=== PATIENT | male | born 1965 | race Two or more races ===

== ENCOUNTER 2025-05-09 14:46 | Emergency (ER) | payer MEDICAID, SELFPAY ==
[2025-05-09 15:09] VITALS: BP 131/83; PULSE 98; RESP 20; TEMP 36.7; O2SAT 95
--- NOTE | 2025-05-09 15:22 | PD.EDRME ---
Rapid Medical Screening Exam RME Arrival date/time: 05/09/25 14:46 This is a case of 60-year-old male who came into the emergency room due to excessive thirst and increased frequency in urine patient checked blood sugar at home it was 520 no other symptoms noted Chief Complaint: General Adult/Misc Complain Time Seen by Provider: 05/09/25 15:20 Vital signs: Vital Signs Temperature 98.0 F 05/09/25 15:09 Pulse Rate 98 05/09/25 15:09 Respiratory Rate 20 05/09/25 15:09 Blood Pressure 131/83 H 05/09/25 15:09 Pulse Oximetry (%) 95 05/09/25 15:09 Oxygen Delivery Method Room Air 05/09/25 15:09
--- NOTE | 2025-05-09 15:40 | PC.NURSE ---
PT TO THE TRIAGE WINDOW TO NOTIFIED THIS NURSE THAT HE IS GOING TO GET HES CELL PHONE FROM HIS CAR
[2025-05-09 15:44] LABS: Collection Type, Urine Voided
[2025-05-09 15:44] LABS: PCO2, Venous 39 mmHg (36-56); pH, Venous 7.44 (7.33-7.66)
[2025-05-09 15:45] LABS: Base Excess, Venous 2 (-3-3); O2 Saturation, Venous 70 % (96-97); PO2, Venous 38 mmHg (15-58)
[2025-05-09 15:48] LABS: Beta Hydroxybutyrate 0.4 mmol/L (<0.6)
[2025-05-09 15:49] LABS: Basophils # (Auto) 0.1 Thou/mm3 (0.0-0.2); Basophils % (Auto) 1 % (0-2.5); Eosinophils % (Auto) 1 % (0-10); Hemoglobin 15.8 g/dL (13.5-16.0); Immature Granulocytes % (Auto) 0 % (0-0); Immature Granulocytes Auto 0.01 Thou/mm3 (0.00-0.00); Lymphocytes # (Auto) 1.7 Thou/mm3 (1.0-4.8); Lymphocytes % (Auto) 32 % (10-50); Mean Corpuscular HGB Conc 35.9 g/dl (31.0-37.0); Mean Corpuscular Volume 81 fL (80-100); Monocytes # (Auto) 0.5 Thou/mm3 (0.0-0.8); Monocytes % (Auto) 9 % (0-12); Neutrophils # (Auto) 2.9 Thou/mm3 (1.8-7.7); Neutrophils % (Auto) 56 % (37-80); Nucleated Red Blood Cell % 0 /100 WBC (0); Platelet Count 197 Thou/mm3 (140-440); RDW Standard Deviation 39.3 fL (35.1-43.9); Red Blood Count 5.45 Miln/mm3 (4.50-5.90); White Blood Count 5.1 Thou/mm3 (3.8-10.6)
--- NOTE | 2025-05-09 15:59 | PC.NURSE ---
no answer when called to be placed in room
[2025-05-09 16:04] LABS: Bilirubin,Urine Negative (Negative); Blood,Urine Negative (Negative); Budding Yeast,Urine Present; Clarity,Urine Clear (Clear/Hazy); Color,Urine Lt-Yellow (Lt Yel-Yel); Glucose, Urine 4+ (Negative); Ketones,Urine Negative (Negative); Leukocyte Esterase,Urine Negative (Negative); Nitrite,Urine Negative (Negative); Protein,Urine Trace (Neg - Trace); RBC,Urine 1 /hpf (0-3); Specific Gravity,Urine 1.031 (1.001-1.035); Squamous Epithelial Cell,Urine 2 /hpf (0-5); Urobilinogen,Urine Negative mg/dL (0.0-1.0); WBC,Urine 3 /hpf (0-5)
[2025-05-09 16:12] LABS: Sperm,Urine Present
[2025-05-09 16:13] LABS: Alanine Aminotransferase 34 U/L (10-49); Albumin, Serum 4.6 gm/dL (3.4-4.8); Albumin/Globulin Ratio 1.6 (1.2-2.2); Alkaline Phosphatase 160 U/L (46-116); Anion Gap 9 (7-16); BUN/Creatinine Ratio 15 Ratio (12-20); Bilirubin,Total 0.6 mg/dL (0.3-1.2); Blood Urea Nitrogen 21 mg/dL (9-23); Calcium 9.6 mg/dL (8.3-10.6); Calcium (Corrected) 9.6 mg/dL (8.5-10.1); Carbon Dioxide 26.6 mMol/L (20.0-31.0); Chloride 94 mMol/L (98-107); Creatinine (Component) 1.4 mg/dL (0.6-1.3); Globulin 2.9 gm/dL (2.3-3.5); Osmolality,Calculated 287 (275-295); Potassium 5.2 mMol/L (3.4-5.1); Sodium 130 mMol/L (136-145); Total Protein 7.5 gm/dL (5.7-8.2); eGFR 57 See Note
[2025-05-09 16:15] LABS: Glucose 528 mg/dL (74-106)
[2025-05-09] MEDS: SODIUM CHLORIDE 0.9% 1000 ML 1,000 ML 999 ML IV ×2 (16:50→18:59)
[2025-05-09] MEDS: INSULIN HUM REGULAR 1 UNIT/0.01 ML (PER UNIT) 10 UNIT IV (16:59)
[2025-05-09 17:01] LABS: Lactate (Lactic Acid) 1.3 mMol/L (0.4-2.0)
[2025-05-09 18:18] VITALS: BP 151/89; PULSE 79; RESP 20; TEMP 36.7; O2SAT 95
[2025-05-09 19:00] VITALS: BP 145/85; PULSE 85; RESP 16; TEMP 37; O2SAT 99
[2025-05-09 20:00] VITALS: BP 150/89; PULSE 70; RESP 16; TEMP 37; O2SAT 99
--- NOTE | 2025-05-10 11:42 | EDNOTE_ITS ---
ED General RME/HPI General Chief complaint: General Adult/Misc Complain Stated complaint: HIGH GLUCOSE ON MONITOR Time Seen by Provider: 05/09/25 15:20 Arrival date/time: 05/09/25 14:46 Limitations: no limitations RME / HPI RME / HPI narrative: 05/09/25 14:46 This is a case of 60-year-old male who came into the emergency room due to excessive thirst and increased frequency in urine patient checked blood sugar at home it was 520 no other symptoms noted. States he thought his sugar was under control and stopped taking his medications. In the past was on Janumet twice daily. For the last 3 days has been noticing he has had the urge to drink 7 sodas a day. Excessive hunger, excessive thirst and urination. States his partner check blood sugar and decided to give him 12 units of her Lantus, early this morning. 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 States he will not be admitted as in the past. States he thought his A1c was around 8% last time but it has gotten up to over 11. Reports he stopped taking medication once his A1c was under 8 thought he could control it with diet. States he will not agree to being admitted hope sister can get controlled here in the ER. No fever no shortness of breath no cough Related Data Allergies Allergy/AdvReac Type Severity Reaction Status Date / Time NKA* Allergy Uncoded 05/09/25 14:49 Review of Systems Review of Systems Systems Reviewed: All systems reviewed, normal except as documented Constitutional Constitutional: Denies fever(s) Cardiovascular Cardiovascular: Denies chest pain with activity and Denies dyspnea on exertion Respiratory Respiratory: Denies dyspnea on exertion Gastrointestinal Gastrointestinal: Denies abdominal pain ED Exam General Limitations: Present no limitations General appearance: Present alert and in no apparent distress Head Head exam: Present atraumatic Eye Eye exam: Present normal appearance, PERRL and EOMI ENT ENT exam: Present normal exam, normal oropharynx and mucous membranes moist Neck Neck exam: Present normal inspection, full ROM and trachea midline Chest Chest inspection: Present normal inspection and symmetric chest wall rise Respiratory Respiratory exam: Present normal lung sounds bilaterally Cardiovascular Cardiovascular exam: Present regular rate, normal rhythm and normal heart sounds Abdominal Exam Abdominal exam: Present soft and normal bowel sounds Extremities Exam Extremities exam: Present normal inspection and full ROM Back Exam Back exam: Present normal inspection and full ROM Neurological Exam Neurological exam: Present alert, oriented X3 and CN II-XII intact Psychiatric Psychiatric exam: Present normal affect and normal mood Skin Skin exam: Present warm, dry, intact and normal color Course Quality Measures none Orders Category Date Time Status Beta Hydroxybutyrate Stat Lab 05/09/25 15:30 Completed CBC Stat Lab 05/09/25 15:30 Completed CMP [Comprehensive Metabolic Panel] Stat Lab 05/09/25 15:30 Completed Lactic Acid [Lactate (Lactic Acid)] Stat Lab 05/09/25 16:58 Completed Urinalysis Stat Lab 05/09/25 15:35 Completed Venous Blood Gas Stat Lab 05/09/25 15:30 Completed Insulin Regular Med 05/09/25 15:20 Discontinued 10 unit IV X1 ONE Sodium Chloride 0.9% 1000 ml [Ns] 1,000 ml Med 05/09/25 15:21 Discontinued IV 999 mls/hr Sodium Chloride 0.9% 1000 ml [Ns] 1,000 ml Med 05/09/25 18:56 Discontinued IV 999 mls/hr Vital Signs Vital signs: Vital Signs Temperature 98.0 F 05/09/25 15:09 Pulse Rate 98 05/09/25 15:09 Respiratory Rate 20 05/09/25 15:09 Blood Pressure 131/83 H 05/09/25 15:09 Pulse Oximetry (%) 95 05/09/25 15:09 Oxygen Delivery Method Room Air 05/09/25 15:09 Discharge Plan Plan Patient Disposition: HOME (Self Care) Discharge Disposition comment: f/u with pcp in 2-3day Prescriptions/Referrals Referrals: No Primary/Family,Physician [Primary Care Provider] - In 1 week Problem List Clinical Impression: Diabetes type 2, uncontrolled, Acute hyperglycemia Patient/Caregiver Discharge Instructions Education Materials: ED Diabetes with High Blood Sugar Print Language: Italian Stand Alone Forms: Carissa Award Info., Patient Portal Info Letter PA/FREIGHT INSPECTOR Supervising Physician PA/FREIGHT INSPECTOR Supervising Physician: Dr. conroy [facility] Narrative MDM hospital course: Patient came in with glucose of over 500 however no acidosis, no ketones, no lactic acid elevation. Stabilized with 10 units of IV insulin and 2 boluses of saline got sugar down into the low 300s which is feasible for patient's current activity. Advised follow-up with PCP restart medications return to ER symptoms worsen Clinical Information Provided by patient and family Medical Records Reviewed [facility] Meds/Rx Considered, not Ordered Describe details: Considered starting patient on Jardiance metformin and insulin however some medications may require prior authorization that is best left done by the primary care doctor. Advised patient to restart his Janumet that he has at home Labs/Rad/Tests considered, not Ordered Describe details: CT abdomen pelvis was considered however not having abdominal pain therefore not warranted Chronic Illness/Social Conditions which may negatively complicate care or outcome(s)-explain: Hx of noncompliance and Genetic/metabolic disorder EKG EKG not done Lab Interpretation Labs: interpreted by mn Lab(s) interpretation(s): CBC CMP stable other than hyponatremia however once corrected for sugar corrected sodium is 135, no abnormal pH, no ketones, no ketones in urine, no lactic acid elevation. Imaging Provider imaging interpretation(s): No imaging warranted Radiology reports / interpretation(s): No imaging Medication Administration(s) Medication Administration History Discontinued Medications Sodium Chloride (Ns) 1,000 mls @ 999 mls/hr IV .Q1H1M ONE Stop: 05/09/25 16:21 Last Infusion: 05/09/25 17:53 Dose: Infused Documented By: Admin: 05/09/25 16:50 Dose: 999 mls/hr Documented By: DONATO Sodium Chloride (Ns) 1,000 mls @ 999 mls/hr IV .Q1H1M ONE Stop: 05/09/25 19:56 Last Infusion: 05/09/25 20:01 Dose: Infused Documented By: Admin: 05/09/25 18:59 Dose: 999 mls/hr Documented By: DONATO Insulin Human Regular (Insulin Hum Regular 1 Unit/0.01 Ml (Per Unit)) 10 unit IV X1 ONE Stop: 05/09/25 15:21 Last Admin: 05/09/25 16:59 Dose: 10 unit Documented By: DONATO Co-signed By: FLORENTIN See above Diagnosis Differential dx and/or dx ruled out: DKA, hyperglycemia, sepsis Most likely dx, and/or detailed dx discussion: Hyperglycemia due to poor compliance with diabetes Dispositon Disposition: Discharge Home
== END 2025-05-09 20:06 | disposition home or self-care (01) ==
PROVIDERS: Nurse Practitioner Family; Physician Assistant; Emergency Provider Family Medicine
DX: E11.65 Type 2 diabetes mellitus with hyperglycemia (principal); T38.3X6A Underdosing of insulin and oral hypoglycemic [antidiabetic] drugs, initial encounter; Z91.128 Patient's intentional underdosing of medication regimen for other reason
CPT/HCPCS: 36415; 80053; 81001; 82010; 82803; 83605; 85025; 96360; 96361; 99284; J1815; J7030